=== PATIENT | female | born 1980 | race African-American/Black ===

== ENCOUNTER 2021-08-18 10:50 | Emergency (ER) | payer OTHER ==
[~2021-08-18] VITALS: Ht 152.4 cm; Wt 58.1 kg
[2021-08-18 11:02] VITALS: TEMP 98.6
[2021-08-18 11:34] LABS: PLATELET COUNT 294 K/uL (152-353)
[2021-08-18 11:47] LABS: POTASSIUM 3.7 mmol/L (3.6-5.2)
[2021-08-18] MEDS ORDERED: MACROBID100 MG PO (12:19)
[2021-08-18] MEDS ORDERED: ONDA4TAB3 PO (12:19)
[2021-08-18 12:27] VITALS: BP 104/48
== END 2021-08-18 12:27 | disposition home or self-care (01) ==
LOC: ED 10:50
PROVIDERS: Emergency Medicine Emergency Medical Services
DX: O23.30 Infections of other parts of urinary tract in pregnancy, unspecified trimester (principal); N39.0 Urinary tract infection, site not specified
CPT/HCPCS: 80048; 81000; 81025; 83735; 85027; 93005; 96360; 96374; 99284; J2405

== ENCOUNTER 2021-10-02 21:43 | Emergency (ER) | payer OTHER ==
[~2021-10-02] VITALS: Ht 152.4 cm; Wt 60.3 kg
[~2021-10-02 21:43] MED LIST: MACROBID100 MG PO; ONDA4TAB3 PO
[2021-10-02 22:28] LABS: PLATELET COUNT 264 K/uL (152-353)
[2021-10-02 23:55] VITALS: BP 118/72; TEMP 98.5
== END 2021-10-02 23:55 | disposition home or self-care (01) ==
LOC: ED 21:43
PROVIDERS: Emergency Medicine
DX: O20.0 Threatened abortion (principal); Z3A.17 17 weeks gestation of pregnancy
CPT/HCPCS: 36415; 80053; 84702; 85027; 85610; 85730; 99284

== ENCOUNTER 2022-02-06 19:17 | Emergency (ER) | payer OTHER | END 2022-02-06 21:40 | disposition home or self-care (01) | LOC: ED 19:17 | DX: S36.63XA Laceration of rectum, initial encounter (principal); M46.1 Sacroiliitis, not elsewhere classified; Z3A.33 33 weeks gestation of pregnancy; X58.XXXA Exposure to other specified factors, initial encounter; Y92.89 Other specified places as the place of occurrence of the external cause | CPT/HCPCS: 81000; 99282 ==